=== PATIENT | female | born 1945 | race Hispanic/Latino ===

== ENCOUNTER 2018-02-03 18:04 | Emergency (ER) | payer OTHER ==
[2018-02-03 18:55] LABS: BASOPHILS % (AUTO) 0.3 % (0.0-5.0); EOSINOPHILS % (AUTO) 0.8 % (0.0-8.0); HEMATOCRIT 38.2 % (36-48); LYMPHOCYTES % (AUTO) 10.1 % (21.0-51.0); MEAN CORPUSCULAR HEMOGLOBIN 31.6 pg (27.0-33.0); MEAN CORPUSCULAR HGB CONC 34.9 g/dL (32.0-36.0); MEAN CORPUSCULAR VOLUME 90.7 fL (79-99); MONOCYTES % (AUTO) 6.6 % (3.0-13.0); NEUTROPHILS % (AUTO) 82.2 % (40.0-77.0); PLATELET COUNT (AUTO) 295 K/uL (130-400); RED BLOOD CELL COUNT(AUTO) 4.22 MIL/uL (4.00-5.50); RED CELL DISTRIBUTION WIDTH 13.2 % (11.0-15.5); WHITE BLOOD COUNT (AUTO) 8.2 K/uL (4.8-10.8)
[2018-02-03 19:07] LABS: CREATININE 0.7 mg/dL (0.5-1.5); INR 0.92 (0.85-1.15); PARTIAL THROMBOPLASTIN TIME 24.6 SEC (26.3-35.5); POTASSIUM 4.1 mmol/L (3.5-5.1); PROTHROMBIN TIME 9.7 SEC (9.6-11.6)
[2018-02-03 19:20] LABS: ALBUMIN 3.6 g/dL (3.5-5.0); BILIRUBIN,TOTAL 0.5 mg/dL (0.2-1.0); CREATINE KINASE MB 3.6 ng/mL (0.5-3.6); TOTAL PROTEIN, SERUM 7.1 g/dL (6.0-8.3)
== END 2018-02-03 22:31 | disposition home or self-care (01) ==
LOC: EDH 18:04
DX: R53.1 Weakness (principal); I10 Essential (primary) hypertension; Z98.890 Other specified postprocedural states
CPT/HCPCS: 36415; 71045; 80053; 82550; 82553; 83874; 84484; 85025; 85610; 85730; 93005; 94761

== ENCOUNTER 2019-01-01 09:50 | Emergency (ER) | payer OTHER, MEDICARE ==
[~2019-01-01 09:50] MED LIST: RABIES VACC, HUMAN DIPLOID/PF 2.5 UNIT ML IM SCH
[2019-01-01] MEDS ORDERED: TETANUS/DIPHTHERIA TOXOID [ADULT] 0.5 ML VIAL IM ONE (10:35)
== END 2019-01-01 11:58 | disposition home or self-care (01) ==
LOC: EDH 09:50
DX: S51.831A Puncture wound without foreign body of right forearm, initial encounter (principal); I10 Essential (primary) hypertension; M19.90 Unspecified osteoarthritis, unspecified site; E07.9 Disorder of thyroid, unspecified; W55.01XA Bitten by cat, initial encounter; Y93.89 Activity, other specified; Y92.89 Other specified places as the place of occurrence of the external cause; Y99.8 Other external cause status
CPT/HCPCS: 90471; 90472; 90675; 90714